=== PATIENT | male | born 2000 | race Two or more races ===

== ENCOUNTER 2021-07-14 10:49 | Emergency (ER) | payer OTHER ==
[~2021-07-14] VITALS: Ht 175.3 cm; Wt 75.0 kg
[2021-07-14] MEDS ORDERED: ONDANSETRON PF 4 MG/2 ML VIAL. IVP ONE (11:15)
[2021-07-14] MEDS ORDERED: IV NORMAL SALINE 1000ML BAG 1,000 ML IV ONE (11:15)
[2021-07-14] MEDS ORDERED: ONDA-84 PO (11:20)
--- NOTE | 2021-07-14 11:22 | PHYS DOC ---
Past Medical History Past Surgical History: No Surgical History General Adult EDM: Chief Complaint: NAUSEA/VOMITING/DIARRHEA HPI: HPI: Patient is a 21 year old male without pertinent past medical history who presents with vomiting for the past 2 days. States that he was vomiting frequently yesterday but his symptoms improved before bed. This morning he woke up and drink coffee, and his nausea and vomiting returned. Nonbloody, nonbilious emesis. Associated with some upper abdominal cramping that he thinks is related to his nausea rather than true abdominal pain. No diarrhea. States that he has had some chills and is unsure about fever. Denies sick contacts. He is vaccinated with 2 doses of mRNA Covid vaccine. No booster yet. No new foods or undercooked foods. Denies alcohol use. Admits to every other day marijuana use, but states he is not smoked in 1 week. Review of Systems: Review of Systems: Constitutional: ? Fever/chills Eyes: Denies change in visual acuity. [] HENT: +nasal congestion. Denies sore throat. [] Respiratory: Denies cough or shortness of breath. [] Cardiovascular: Denies chest pain or edema. [] GI: Reports nausea and vomiting. Denies abdominal pain or diarrhea. : Denies dysuria. [] Musculoskeletal: Denies back pain or joint pain. [] Integument: Denies rash. [] Neurologic: Denies headache, focal weakness or sensory changes. [] Psychiatric: Denies depression or anxiety. [] Heart Score: C/O Chest Pain: No Current Medications: Current Medications Medications (Trade) Dose Ordered Sig/[facility] Start Time Stop Time Status Last Admin Dose Admin Ondansetron HCl (Zofran) 4 mg 1X ONCE 07/14/21 11:15 07/14/21 11:16 Sodium Chloride 1,000 ml @ 1,000 mls/hr 1X ONCE 07/14/21 11:15 07/14/21 12:14 Allergies: Allergies: Allergies Coded Allergies Type Severity Reaction Last Updated Verified No Known Drug Allergies 07/14/21 No Physical Exam: PE: Constitutional: Well developed, well nourished, no acute distress, smells of THC HENT: Normocephalic, atraumatic Neck: Normal range of motion, no tenderness, supple, no stridor. [] Cardiovascular:Heart rate regular rhythm, no murmur [] Lungs & Thorax: Bilateral breath sounds clear to auscultation [] Abdomen: Minimal upper abdominal tenderness to palpation in RUQ, epigastrium, LUQ. No guarding or rebound. Soft. Skin: Warm, dry, no erythema, no rash. [] Back: No tenderness, no CVA tenderness. [] Extremities: No tenderness, no cyanosis, no clubbing, ROM intact, no edema. [] Neurologic: Alert and oriented X 3, normal motor function, normal sensory function, no focal deficits noted. [] Current Patient Data: Vital Signs: Vital Signs Date Time Temp Pulse Resp B/P (MAP) Pulse Ox O2 Delivery O2 Flow Rate FiO2 07/14/21 11:08 98.7 78 16 140/92 (108) 100 Room Air 98.7 EKG: EKG: [] Radiology/Procedures: Radiology/Procedures: [] Course & Med Decision Making: Course & Med Decision Making Pertinent Labs and Imaging studies reviewed. (See chart for details) Patient is 21-year-old male without pertinent past medical history presents with recurrent nausea/vomiting. On arrival is afebrile, hemodynamically stable, satting well on room air. He is in no distress. Abdominal exam with very minimal upper abdominal tenderness, essentially benign exam. We will check LFTs, lipase, electrolytes, and treat with IVF and Zofran. Consider THC related emesis. Will defer any abdominal imaging. 1118 Labs largely unremarkable. Continuing to retch despite zofran. Will try compazine and benadryl. 1157 Patient feeling somewhat better still with some mild nausea. He has a baby shower he needs to attend so will be discharged at this time with zofran Rx. [id number] Keli Disclaimer: Keli Disclaimer: This electronic medical record was generated, in whole or in part, using a voice recognition dictation system. Departure Departure Impression: Primary Impression: Nausea & vomiting Disposition: 01 HOME / SELF CARE / HOMELESS Condition: STABLE Patient Instructions: Nausea and Vomiting Additional Instructions: Your work up was reassuring. Please eat a bland diet. Focus on fluid intake to ensure you do not become dehydrated. Avoid alcohol and marijuana. Frequent marijuana use can be associated with recurrent episodes of vomiting. You can use zofran as needed for nausea. Do not use more frequently than instructions on bottle. Return to the emergency department if you have severe abdominal pain, high fevers, or inability to keep down fluids for a prolonged period of time. Scripts Ondansetron Hcl (ONDANSETRON HCL) 4 Mg Tablet 1 TAB PO PRN Q6HRS, #15 TAB 0 Refills Prov: MILO NASH MD 07/14/21 MILO NASH MD Jul 14, 2021 11:22
[2021-07-14 11:48] LABS: BASO % 0 % (0-3); EOS # 0.2 x10^3/uL (0.0-0.7); EOS % 2 % (0-3); GFR 94.3; HEMATOCRIT 41.8 % (39.0-53.0); LYMPH # 1.8 x10^3/uL (1.0-4.8); LYMPH % 25 % (24-48); MEAN CORPUSCULAR HEMOGLOBIN 29 pg (25-35); MEAN CORPUSCULAR HGB CONC 34 g/dL (31-37); MEAN CORPUSCULAR VOLUME 86 fL (79-100); MONO # 0.5 x10^3/uL (0.0-1.1); MONO % 6 % (0-9); NEUT % 67 % (31-73); PLATELET COUNT 310 x10^3/uL (140-400); POTASSIUM 3.2 mmol/L (3.5-5.1); RED BLOOD COUNT 4.84 x10^6/uL (4.30-5.70); WHITE BLOOD COUNT 7.5 x10^3/uL (4.0-11.0)
[2021-07-14 11:54] LABS: ALBUMIN 4.1 g/dL (3.4-5.0); ALBUMIN/GLOBULIN RATIO 1.1 (1.0-1.7); TOTAL BILIRUBIN 0.4 mg/dL (0.2-1.0)
[2021-07-14] MEDS ORDERED: diphenhydrAMINE 50 MG/ML VIAL IVP ONE (12:00)
[2021-07-14] MEDS ORDERED: PROCHLORPERAZINE 10 MG/2 ML VIAL. IV ONE (12:00)
[2021-07-14 12:52] VITALS: BP 126/84
--- NOTE | 2021-07-16 17:09 | NUR ---
IP: Attempted to contact pt concerning covid results. No answer, left a voicemail to return the call.
== END 2021-07-14 13:24 | disposition home or self-care (01) ==
LOC: ER 10:49
DX: R11.2 Nausea with vomiting, unspecified (principal); R10.10 Upper abdominal pain, unspecified; Z20.822 Contact with and (suspected) exposure to COVID-19
CPT/HCPCS: 36415; 80053; 83690; 85025; 87426; 96361; 96374; 96375; 99284; C9803; J0780; J1200; J2405; J7030; U0003